=== PATIENT | male | born 1990 | race African-American/Black ===

== ENCOUNTER 2016-09-01 06:34 | Emergency (ER) | payer MEDICAID, OTHER ==
[~2016-09-01] VITALS: Ht 180.3 cm; Wt 105.0 kg
[2016-09-01] MEDS ORDERED: AZITHROMYCIN 500 MG TABLET PO ONE (10:00)
[2016-09-01] MEDS ORDERED: CEFTRIAXONE SODIUM 250 MG/VIAL IM ONE (10:00)
[2016-09-01] MEDS ORDERED: IBUPROFEN 800MG TABLET PO ONE (10:15)
[2016-09-01 10:35] LABS: GLUCOSE URINE NEGATIVE (NEGATIVE); KETONES URINE NEGATIVE (NEGATIVE); LEUKOCYTE ESTERASE URINE 1+ (NEGATIVE); NITRITE URINE NEGATIVE (NEGATIVE); OCCULT BLOOD URINE NEGATIVE (NEGATIVE); PH URINE 5.5 (4.5-8.0); PROTEIN URINE TRACE (NEGATIVE); SPECIFIC GRAVITY URINE 1.035 (1.005-1.030); UROBILINOGEN URINE 0.2 E.U./dL (0.2-1.0)
[2016-09-01 10:38] LABS: CLARITY URINE SL HAZY (CLEAR); COLOR URINE DARK YELLOW (YELLOW)
[2016-09-01] MEDS ORDERED: LIDOCAINE HCL 1% 20ML VIAL (Pyxis) INJ MC ONE (10:45)
[2016-09-01 11:15] VITALS: BP 119/67
[2016-09-05 04:11] LABS: CHLAMYDIA TRACHOMATIS NAA Negative (Negative); NEISSERIA GONORRHOEAE NAA Negative (Negative)
== END 2016-09-01 11:33 | disposition home or self-care (01) ==
LOC: ER 09:24
DX: Z20.2 Contact with and (suspected) exposure to infections with a predominantly sexual mode of transmission (principal)
CPT/HCPCS: 81001; 87491; 87591; 96372; 99283; J0696; J3490

== ENCOUNTER 2018-03-06 02:14 | Emergency (ER) | payer SELFPAY ==
[~2018-03-06] VITALS: Ht 177.8 cm; Wt 109.0 kg
[2018-03-06 03:20] LABS: CLARITY URINE CLEAR (CLEAR); COLOR URINE YELLOW (YELLOW); KETONES URINE TRACE (NEGATIVE); LEUKOCYTE ESTERASE URINE 1+ (NEGATIVE); NITRITE URINE NEGATIVE (NEGATIVE); OCCULT BLOOD URINE NEGATIVE (NEGATIVE); PH URINE 5.5 (4.5-8.0); PROTEIN URINE TRACE (NEGATIVE); SPECIFIC GRAVITY URINE 1.037 (1.005-1.030)
[2018-03-06] MEDS ORDERED: CEFTRIAXONE SODIUM 250 MG/VIAL IM ONE (04:30)
[2018-03-06] MEDS ORDERED: AZITHROMYCIN 500 MG TABLET PO ONE (04:30)
[2018-03-06 05:00] VITALS: BP 128/79
== END 2018-03-06 05:00 | disposition home or self-care (01) ==
LOC: ER 02:14
DX: R30.0 Dysuria (principal)
CPT/HCPCS: 81003; 96372; 99283; J0696

== ENCOUNTER 2020-03-15 21:26 | Emergency (ER) | payer MEDICAID ==
[~2020-03-15] VITALS: Ht 180.3 cm; Wt 111.5 kg
[2020-03-15 21:28] VITALS: BP 145/87
[2020-03-15] MEDS ORDERED: DOXYCYCLINE HYCLATE 100MG CAPSULE PO ONE (22:45)
[2020-03-15] MEDS ORDERED: LIDOCAINE HCL/PF 1% 10 MG/ML 5ML VIAL IJ ONE (22:45)
[2020-03-15] MEDS ORDERED: CEFTRIAXONE SODIUM 500 MG/VIAL IM ONE (22:45)
[2020-03-15 22:47] LABS: CLARITY URINE CLEAR (CLEAR); COLOR URINE YELLOW (YELLOW); KETONES URINE NEGATIVE (NEGATIVE); LEUKOCYTE ESTERASE URINE 1+ (NEGATIVE); NITRITE URINE NEGATIVE (NEGATIVE); OCCULT BLOOD URINE NEGATIVE (NEGATIVE); PROTEIN URINE NEGATIVE (NEGATIVE); SPECIFIC GRAVITY URINE 1.025 (1.005-1.030); UROBILINOGEN URINE 0.2 E.U./dL (0.2-1.0)
== END 2020-03-15 23:17 | disposition home or self-care (01) ==
LOC: ER 21:26
DX: R30.0 Dysuria (principal); Z11.3 Encounter for screening for infections with a predominantly sexual mode of transmission
CPT/HCPCS: 81003; 96372; 99283; J0696; J3490

== ENCOUNTER 2022-03-25 22:33 | Emergency (ER) | payer MEDICAID ==
[~2022-03-25] VITALS: Ht 180.3 cm; Wt 116.1 kg
[2022-03-25 23:02] VITALS: BP 141/86
[2022-03-26] MEDS ORDERED: CEFTRIAXONE SODIUM 500 MG/VIAL IM ONE (01:15)
[2022-03-26] MEDS ORDERED: DOXY100T2 PO (01:43)
[2022-03-26] MEDS ORDERED: KETO15CR2 TP (01:43)
[2022-03-26 01:59] LABS: CLARITY URINE CLEAR (CLEAR); COLOR URINE YELLOW (YELLOW); KETONES URINE TRACE (NEGATIVE); LEUKOCYTE ESTERASE URINE TRACE (NEGATIVE); NITRITE URINE NEGATIVE (NEGATIVE); OCCULT BLOOD URINE NEGATIVE (NEGATIVE); PH URINE 5.5 (4.5-8.0); PROTEIN URINE NEGATIVE (NEGATIVE); SPECIFIC GRAVITY URINE 1.026 (1.005-1.030); UROBILINOGEN URINE 0.2 E.U./dL (0.2-1.0)
[2022-03-28 04:08] LABS: NEISSERIA GONORRHOEAE NAA Negative (Negative)
== END 2022-03-26 01:50 | disposition home or self-care (01) ==
LOC: ER 22:49
DX: R30.0 Dysuria (principal); A54.9 Gonococcal infection, unspecified; A74.9 Chlamydial infection, unspecified; B35.6 Tinea cruris
CPT/HCPCS: 81003; 87491; 87591; 96372; 99283; J0696; Z7610